=== PATIENT | male | born 1975 | race Caucasian/White ===

== ENCOUNTER → 2019-11-12 | Outpatient (CLI) | payer OTHER ==
--- NOTE | 2019-11-12 11:04 | MR ---
EXAMINATION TYPE: MR knee LT wo con DATE OF EXAM: 11/12/2019 10:43 AM COMPARISON: NONE HISTORY: Left knee pain TECHNIQUE: Multiplanar, multiecho imaging of the left knee is performed without IV contrast. FINDINGS: There is only a small amount of joint fluid. 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 There is grade I to IV chondromalacia involving the medial tibial plateau and grade I to III cho ndromalacia involving the weightbearing surface of the medial femoral condyle. There is a horizontal tear through the posterior horn of the medial meniscus communicating with the i nferior surface. The lateral meniscus appears unremarkable. Both anterior and posterior cruciate liga ments are intact. The medial and lateral collateral ligaments are unremarkable. The iliotibial band inserts normally up on Gerdy's tubercle. The popliteus muscle and tendon are normal. Both quadriceps and patellar tendons are intact. There is only mild swelling in the Hoffa fat space. IMPRESSION: 1. HORIZONTAL TEAR THROUGH THE POSTERIOR HORN OF THE MEDIAL MENISCUS AND BODY HORN JUNCTION. 2. CHONDROMALACIA DESCRIBED.
== END | disposition home or self-care (01) ==
LOC: RADMRIMAIN 10:11
PROVIDERS: ATTEND Orthopaedic Surgery
DX: S83.242A Other tear of medial meniscus, current injury, left knee, initial encounter (principal); M94.262 Chondromalacia, left knee